=== PATIENT | female | born 1985 | race Caucasian/White ===

== ENCOUNTER 2021-04-16 17:33 | Emergency (ER) | payer SELFPAY ==
[~2021-04-16] VITALS: Ht 167.6 cm; Wt 54.4 kg
[2021-04-16 17:49] VITALS: BP 115/59
--- NOTE | 2021-04-16 18:31 | NUR ---
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
--- NOTE | 2021-04-16 18:32 | NUR ---
PT WANTS TO SEE AN MD. PT STATES SHE CALLED HER PCP WHO TOLD HER TO GO TO ER FOR MEDICATION. PROVIDER NOT PRESCRIBING BENZODIAZEPINES TO HER AT THIS TIME. PT WANTS TO SPEAK TO MD. DR. BRAUN AWARE. DONALD MAK SPEAKING WITH PATIENT OUTSIDE.
--- NOTE | 2021-04-16 18:45 | NUR ---
DR. BRAUN WILL NOT BE SEEING PATIENT. PT IS DISCHARGED BY DONALD MAK. OBDULIO WENT TO SPEAK TO PATIENT AGAIN. I WENT OUT TO DISCHARGE PATIENT AND SPEAK WITH HER AGAIN AND SHE WAS NOT IN THE LOBBY NOR OUTSIDE OF ER LOBBY.
== END 2021-04-16 18:45 | disposition home or self-care (01) ==
LOC: MED 17:33
DX: F41.9 Anxiety disorder, unspecified (principal)
CPT/HCPCS: 99281